=== PATIENT | male | born 1995 | race Hispanic/Latino ===

== ENCOUNTER 2023-09-04 12:13 | Emergency (ER) | payer OTHER, SELFPAY ==
[2023-09-04] MEDS ORDERED: Ketorolac Tromethamine 30 MG (1 mL) VIAL ONE (13:06)
[2023-09-04] MEDS ORDERED: Diazepam 10 MG/2 ML SYRINGE ONE (13:06)
[2023-09-04] MEDS ORDERED: Dexamethasone 4 MG TAB ONE (13:27)
[2023-09-04] MEDS ORDERED: HYDROcodone/Acetaminophen 5/325 mg Tablet ONE (13:56)
== END 2023-09-04 14:27 | disposition home or self-care (01) ==
LOC: ERS 12:13
DX: M54.50 Low back pain, unspecified (principal); I10 Essential (primary) hypertension; X50.1XXA Overexertion from prolonged static or awkward postures, initial encounter; Y99.0 Civilian activity done for income or pay
CPT/HCPCS: 96372; 99283; J1885; J3360; J8540